=== PATIENT | male | born 1940 | race Caucasian/White ===

== ENCOUNTER 2023-09-03 23:19 | Emergency (ER) | payer MEDICARE, SELFPAY ==
[2023-09-03 23:40] VITALS: BP 141/77; PULSE 62; RESP 15; TEMP 37.2; O2SAT 100
--- NOTE | 2023-09-04 00:18 | ED.GENADULT ---
HPI - General Adult General Chief complaint: Unspecified Stated complaint: hands swollen - thinks he was bit by something Time Seen by Provider: 09/03/23 23:39 Source: patient Limitations: no limitations History of Present Illness HPI narrative: Patient is a 82-year-old male presents to the emergency department complaining of bumps to his bilateral hands along the dorsal lateral aspects that appeared spontaneously 2 days ago and with itchiness and redness and patient believes he got bit by a bug possibly, denies any history of this in the past, he started to squeeze the bumps and they were squeezing out clear fluid that has since resolved and denies any drainage or pain. Patient has not been taking any medications for it, denies any numbness, decreased range of motion, spreading redness, fever, new exposures. Related Data Allergies Allergy/AdvReac Type Severity Reaction Status Date / Time No Known Allergies Allergy Verified 09/04/23 01:02 Review of Systems Review of Systems: A 10 system review of systems was completed on the patient and is negative except for what is stated in the HPI. Nursing and ancillary documentation was reviewed. PMFSH Comments At time of signature, I have reviewed and agree with nursing past medical, surgical, social and family history unless otherwise noted. Please see the nursing chart for further information. There is no relevant family history pertinent to the presenting complaint. Exam Narrative: CONST: No acute distress. Well nourished. HENMT: Head is normocephalic and atraumatic. Moist mucous membranes. No posterior oropharynx erythema. EYES: No conjunctival icterus, injection, or pallor. PERRL. NECK: No meningeal signs. RESP: Able to speak in full sentences. Normal respiratory effort. CTAB. CARDIO: Regular rate. Regular rhythm. 2+ DP and radial pulses bilaterally. GI: Nondistended. No tenderness to palpation. Soft. : No CVA tenderness to palpation. SKIN: Scant erythema warmth to the bilateral dorsal lateral aspects of the hands with no fluctuance, no tenderness to palpation, small hemostatic scant present in the center of each area, no crepitus. NEURO: Moves all extremities. EXTREM/MSK/BACK: No pedal edema. PSYCH: Normal affect. Course Vital Signs Vital signs: Vital Signs Temperature 98.9 F 09/03/23 23:40 Pulse Rate 62 09/03/23 23:40 Respiratory Rate 15 09/03/23 23:40 Blood Pressure 141/77 H 09/03/23 23:40 Pulse Oximetry 100 09/03/23 23:40 Oxygen Delivery Room Air 09/03/23 23:40 Temperature 98.9 F 09/03/23 23:40 Pulse Rate 62 09/03/23 23:40 Respiratory Rate 15 09/03/23 23:40 Blood Pressure 141/77 H 09/03/23 23:40 Pulse Oximetry 100 09/03/23 23:40 Oxygen Delivery Room Air 09/03/23 23:40 Medical Decision Making MDM Narrative Medical decision making narrative: Patient presents with the above complaint. Initial vitals are remarkable for no significant abnormalities. Physical examination as noted above. Plan discussed: Keflex, follow-up with the primary care physician, return precautions. Patient instructed reports upon with the primary care physician, have the areas reassessed in 72 hours if not improving, return immediately if he develops any rapid spreading redness, pain, fever, foul-smelling discharge. Patient instructed to stop scratching the wounds and will be given anti itch cream. Differential diagnosis includes was not limited to cellulitis, dermatitis. Patient demonstrates understanding and agreeable with plan of care. Vital Signs Vital Signs: Vital Signs Temperature 98.9 F 09/03/23 23:40 Pulse Rate 62 09/03/23 23:40 Respiratory Rate 09/03/23 23:40 Blood Pressure 141/77 H 09/03/23 23:40 Pulse Oximetry 100 09/03/23 23:40 Oxygen Delivery Room Air 09/03/23 23:40 Temperature 98.9 F 09/03/23 23:40 Pulse Rate 62 09/03/23 23:40 Respiratory Rate 15 09/03/23 23:40 Blood Pressure
[2023-09-04] MEDS: CEPHALEXIN 500 MG CAPSULE PO (01:03)
[2023-09-04 01:23] VITALS: BP 155/72; PULSE 61; RESP 14; O2SAT 100
== END 2023-09-04 01:23 | disposition home or self-care (01) ==
PROVIDERS: Emergency Provider Student in an Organized Health Care Education/Training Program
DX: L03.114 Cellulitis of left upper limb (principal); L03.113 Cellulitis of right upper limb
CPT/HCPCS: 99283; A9270